=== PATIENT | male | born 1965 | race American Indian/Alaskan Native ===

== ENCOUNTER 2017-02-27 06:34 | Emergency (ER) | payer OTHER ==
--- NOTE | 2017-02-27 07:42 | Ultrasound Report ---
ULTRASOUND TESTICULAR DOPPLER COMPLETE History: Scrotal swelling, pain. Technique: Trans-scrotal ultrasound with spectral doppler interrogation. Findings: There is diffuse scrotal skin thickening measuring up to 2.0 cm. There is a heterogeneous area with early cystic change within the scrotal wall to the left of midline which resembles an early abscess. No defined, mature encapsulated abscess at this time. Both testes and epididymides are normal size, contour and echotexture. No mass or pathologic calcifications. Spectral Doppler waveforms demonstrate symmetric arterial flow to both testes. Small to medium right hydrocele is identified. A moderate left varicocele is suspected. IMPRESSION: Probable scrotal cellulitis with early abscess formation as described. No evidence for epididymal orchitis or torsion. Right hydrocele. Left varicocele.
[2017-02-27] MEDS ORDERED: TORADOL IV ONE (08:49)
[2017-02-27] MEDS ORDERED: ZOFRAN IV ONE (08:49)
[2017-02-27] MEDS ORDERED: CLEOCIN 600 MG/50 mL 600 MG/50 ML BAG IV ONE (08:49)
[2017-02-27] MEDS ORDERED: MORPHINE IV ONE (08:49)
--- NOTE | 2017-02-27 09:10 | Emergency Department Report ---
ED Male HPI - General Chief complaint: Urogenital-Male Stated complaint: BOIL Time Seen by Provider: 02/27/17 08:31 Source: patient Mode of arrival: Ambulatory Limitations: No Limitations - History of Present Illness Initial comments: 51 yo male with no significant past medical history presents to the Hospital complains of pain and swelling to left testicle. Symptoms started 4 days ago and progressively worsen. Patient complains of constant to 7/10 of scrotal pain that is aching, worse palpation movement. No alleviating factors. No complaints of dysuria, fever, nausea, or vomiting. Intermittent chills reported. Patient denies diabetes. - Related Data Previous Rx's Medication Instructions Recorded Last Taken Type Ciprofloxacin HCl [Ciprofloxacin 500 mg PO Q12HR #20 tab 02/27/17 Unknown Rx TAB] HYDROcodone/APAP 5-325 [[place] 1 each PO Q6HR PRN #20 tablet 02/27/17 Unknown Rx 5/325] Ibuprofen [Motrin] 800 mg PO Q8HR PRN #30 tablet 02/27/17 Unknown Rx Allergies Allergy/AdvReac Type Severity Reaction Status Date / Time No Known Allergies Allergy Unverified 02/27/17 07:00 ED Review of Systems ROS: Stated complaint: BOIL Other details as noted in HPI Comment: All other systems reviewed and negative Other: Constitutional: No fevers Eyes: No eye pain visual changes ENT: No ear pain or throat pain Neck: Denies pain Respiratory: Denies cough wheezing shortness of breath Cardiovascular: Denies chest pain, palpitations, syncope GI: Denies abdominal pain, nausea, vomiting, diarrhea : as per hpi Musculoskeletal: Denies back pain Skin: Denies rash, lesions, erythema Neurologic: Denies headache, numbness, weakness Psychiatric: Denies suicidal ideation, hallucinations ED Past Medical Hx - Past Medical History Previous Medical History?: No - Surgical History Past Surgical History?: No - Social History Smoking Status: Never Smoker Substance Use Type: None - Medications Home Medications: Home Medications Medication Instructions Recorded Confirmed Last Taken Type Ciprofloxacin HCl [Ciprofloxacin 500 mg PO Q12HR #20 tab 02/27/17 Unknown Rx TAB] HYDROcodone/APAP 5-325 [[place] 1 each PO Q6HR PRN #20 tablet 02/27/17 Unknown Rx 5/325] Ibuprofen [Motrin] 800 mg PO Q8HR PRN #30 tablet 02/27/17 Unknown Rx ED Physical Exam - General Limitations: No Limitations - Other Other exam information: General: No limitations, patient is alert in no acute distress Head exam: Atraumatic, normocephalic Eyes exam: Normal appearance, pupils equal reactive to light, extraocular movements intact ENT: Moist mucous membrane, normal oropharynx Neck exam: Normal inspection, full range of motion, no meningismus nontender Respiratory exam: Clear to auscultation bilateral, no wheezes, rales, crackles Cardiovascular: Normal rate and rhythm, normal heart sounds Abdomen: Soft, nondistended, and nontender, with normal bowel sounds, no rebound, or guarding : Uncircumcised penis, no discharge or lesions, left inferior scrotal 4 x 2 cm area of induration and tenderness Extremity: Full range of motion normal inspection no deformity Back: Normal Inspection, full range of motion, no tenderness Neurologic: Alert, oriented x3, cranial nerves intact, no motor or sensory deficit Psychiatric: normal affect, normal mood Skin: Warm, dry, intact ED Course Vital Signs 02/27/17 02/27/17 02/27/17 06:56 08:29 10:00 Temperature 98.9 F 98.4 F Pulse Rate 75 73 61 Respiratory 14 14 Rate Blood Pressure 121/80 100/74 [Left] O2 Sat by Pulse 100 97 97 Oximetry - Consultations Consultation #1: 02/27/17 09:10 Awaiting urology call back 02/27/17 10:30 Case discussed with urologist Dr Lofton upon callback at this time. Agrees with clindamycin and recommends one dose of Rocephin and d/c on Cipro 500 twice a day. No I&D indicated at this time based based on ultrasound findings. Recommended follow-up in office this week. ED Medical Decision Making - EKG Data Interpretation: no acute changes - Radiology Data Radiology results: report reviewed (testicular Doppler: Probable scrotal cellulitis with early abscess formation. Diffuse scrotal skin thickening measuring up to 2 cm and a heterogeneous area was early cystic changes within the scrotal wall to the left of the midline which resembles early abscess. No defined mature encapsulated abscess at this time. No evidence of epididymal orchitis or torsion. Right hydrocele. Left varicocele) - Medical Decision Making Plan to discharge patient on Cipro 500 mg twice a day and medication for pain. Urology follow-up will be encouraged Patient received Rocephin and clindamycin IV in the ED No signs of diabetes - Differential Diagnosis epididymitis, scrotal abscess, scrotal cellulitis, testicular torsion Critical Care Time: No Critical care attestation.: If time is entered above; I have spent that time in minutes in the direct care of this critically ill patient, excluding procedure time. ED Disposition Clinical Impression: Cellulitis of scrotum Disposition: TO HOME OR SELFCARE Is pt being admited?: No Does the pt Need Aspirin: No Condition: Stable Instructions: Cellulitis (ED) Additional Instructions: Follow up with the urologist provided. Return if symtoms worsen. Prescriptions: Ciprofloxacin HCl [Ciprofloxacin TAB] 500 mg PO Q12HR #20 tab HYDROcodone/APAP 5-325 [[place] 5/325] 1 each PO Q6HR PRN #20 tablet PRN Reason: Pain Ibuprofen [Motrin] 800 mg PO Q8HR PRN #30 tablet PRN Reason: Pain Referrals: CADY LOFTON MD [Staff Physician] - 2-3 Days (urology) Time of Disposition: 12:07
[2017-02-27 10:26] LABS: Bilirubin,Urine NEG (Negative); Blood,Urine NEG (Negative); Ketones,Urine NEG (Negative); Leukocyte Esterase,Urine NEG (Negative); Mucus,Urine 1+ /HPF; Nitrite,Urine NEG (Negative); Protein,Urine <15 mg/dL mg/dL (Negative); RBC,Urine < 1.0 /HPF (0.0-6.0); WBC,Urine < 1.0 /HPF (0.0-6.0)
[2017-02-27] MEDS ORDERED: ROCEPHIN/NS 1 GM/50 ML 1 GM/50 ML BAG IV ONE (10:30)
[2017-02-27 11:10] VITALS: BP 100/74
== END 2017-02-27 12:07 | disposition home or self-care (01) ==
LOC: ED 06:34
DX: N49.2 Inflammatory disorders of scrotum (principal)
CPT/HCPCS: 81001; 82962; 87086; 87591; 93975; 96365; 96367; 96375; 99284; J0696; J1885; J2270; J2405